=== PATIENT | female | born 1975 | race Caucasian/White ===

== ENCOUNTER 2023-08-03 12:57 | Emergency (ER) | payer OTHER, SELFPAY ==
[2023-08-03 13:12] VITALS: BP 200/100
[2023-08-03 13:53] LABS: % Basophils 0.9 % (0-2); % Immature Granulocytes 0.3 % (0-0.5); % Lymphocytes 27.6 % (20.5-51.1); % Monocytes 7.8 % (1.7-9.3); % Neutrophils 61.4 % (42.2-75.2); Absolute Basophils 0.1 10^3/uL (0-0.2); Absolute Eosinophils 0.2 10^3/uL (0-0.7); Absolute Lymphocytes 2.1 10^3/uL (1.2-3.4); Absolute Monocytes 0.6 10^3/uL (0.1-0.6); Absolute Neutrophils 4.6 10^3/uL (1.4-6.5); Hematocrit 43.6 % (37.0-47.0); Hemoglobin 14.9 g/dL (12.0-16.0); Mean Corp Hgb Conc. 34.2 g/dL (33.0-37.0); Mean Corpuscular Hgb 31.4 pg (27.0-31.0); Mean Platelet Volume 9.9 fL (7.4-10.4); Nucleated Red Blood Cells % 0 %; Platelet Count 330 10^3/uL (130-400); Red Blood Cell Count 4.74 10^6/uL (4.20-5.40); Red Cell Dist. Width 11.6 % (11.5-14.5); White Blood Cell Count 7.5 10^3/uL (4.8-10.8)
[2023-08-03 14:03] LABS: HCG, Serum Qualitative Screen Negative
[2023-08-03 14:09] LABS: ALT (SGPT) 21 U/L (0-35); AST (SGOT) 29 U/L (14-36); Albumin 5.1 g/dl (3.5-5.0); Alkaline Phosphatase 45 U/L (38-126); Blood Urea Nitrogen 21 mg/dl (7-17); Calcium 9.6 mg/dl (8.4-10.2); Carbon Dioxide 28 mmol/L (22-30); Chloride 102 mmol/L (98-107); Glucose 89 mg/dl (70-99); Potassium 4.1 mmol/L (3.5-5.1); Sodium 137 mmol/L (135-145); Total Bilirubin 1.1 mg/dl (0.2-1.3); Total Protein 7.9 g/dl (6.3-8.2); eGFR > 60.00
[2023-08-03 15:12] VITALS: BP 160/103
[2023-08-03 15:13] VITALS: BMI 24.9
[2023-08-03 15:22] LABS: Urine Albumin Negative (Neg - Trace); Urine Bilirubin Negative (Negative); Urine Character Clear (Clear); Urine Color Yellow; Urine Glucose Negative (Negative); Urine Ketone Trace (Negative); Urine Leukocyte Negative (Negative); Urine Nitrite Negative (Negative); Urine Occult Blood Negative (Negative); Urine Urobilinogen Negative (Neg - 1+)
--- NOTE | 2023-08-03 15:30 | ED.GENMED ---
History of Present Illness
General
Chief Complaint: Abdominal Symptoms
Source: patient
Time Seen by Provider: 08/03/23 15:04
Travel History
Have you had any contact with someone who has COVID-19?: No
Do you have any symptoms of coronavirus? Fever > 100 degrees, chills, cough, shortness of breath, sore throat, loss of taste or smell, muscle aches, or headache?: No
History of Present Illness
History of Present Illness:
47-year-old female with past medical history of diverticulitis, giant cell arteritis (gets once monthly infusion) presenting to the emergency department for evaluation of left-sided lower abdominal pain x 2 days accompanied with 1 day of nausea
(notes this is currently resolved) and some slightly decreased p.o. intake. Patient states that the location of the pain feels similar to previous diverticulitis but she was concerned about possible bowel obstruction or bowel perforation given the
infusion she is on for her giant cell arteritis stated that this was one of the potential side effects. She denies any fevers, rigors, vomiting, urinary symptoms or bowel changes. She did take some Motrin yesterday with minimal relief but did not
take anything yet today for that her symptoms. She has no other concerns at this time. Social history was noncontributory.
Past History
Past History
ED Past Medical History: CVA, Psychiatric and Other (Diverticulitis, giant cell arteritis)
ED Past Surgical History: Cholecystectomy, Gynecological and Other
Social History
Tobacco: Non-smoker
Alcohol: Occasional
Drug: None
Personal:
Living: with family
Employment: Employed ([employer])
Review of Systems
Review of Systems
All Other Systems: ROS reviewed and negative except as documented in HPI and ROS
Phy Exam
Physical Exam
Physical Exam:
GENERAL: Alert , in no apparent distress but does appear mildly uncomfortable
EYE: clear conjunctiva b/l
HEAD: NCAT
ENT: o/p clr, mmm.
CARDIAC: Regular rate and rhythm .
LUNGS: Clear breath sounds bilaterally, no acute respiratory distress, no wheezes/rales/rhonchi
ABDOMEN: Soft moderate tenderness within the left lower quadrant but without rebound or guarding, no r/g, no cvat
NEUROLOGICAL: Alert and oriented
SKIN: Warm and dry, skin intact.
MUSCULOSKELETAL: well perfused.
PSYCH: Normal and appropriate interaction.
Scores
Heart Failure Risk
Heart Failure Risk Score: Not Applicable
Heart Score for Chest Pain Patients
STEMI patient?: Not applicable
Withdrawal Assessment of Alcohol
Withdrawal Assessment Completed?: Not applicable
Course
Orders/Labs/Results
Orders:
Orders
08/03/23 13:19
Test Result ONCE
08/03/23 13:42
Complete Blood Count/With Diff Urgent
Comprehensive Metabolic Panel Urgent
HCG, Serum Qualitative Screen Urgent
08/03/23 14:32
CT Abd/Pel (IV only)-DH only Urgent
Comment:
Reason For Exam: left abd pain
08/03/23 15:16
Urinalysis Reflex To Culture Urgent
Date Specimen was Collected: 08/03/23
Time Specimen was Collected: 13:19
08/03/23 15:29
Ketorolac [Toradol] 30 mg IV NOW STA
Abnormal Lab Results
08/03/23 08/03/23
13:42 15:16
MCH 31.4 H pg
(27.0-31.0)
BUN 21 H mg/dl
(7-17)
Albumin 5.1 H g/dl
(3.5-5.0)
Urine Ketones Trace A
(Negative)
08/03/23 13:42
08/03/23 13:42
Vital Signs
Initial and Last Documented VS:
Initial Vital Signs
Temp Pulse Resp BP Pulse Ox
98.8 F 87 16 200/100 98
08/03/23 13:12 08/03/23 13:12 08/03/23 13:12 08/03/23 13:12 08/03/23 13:12
Last Documented Vital Signs
Temp Pulse Resp BP Pulse Ox
98.8 F 85 18 153/95 100
08/03/23 13:12 08/03/23 16:55 08/03/23 16:55 08/03/23 17:00 08/03/23 16:55
MDM/Problems Addressed
Differential Diagnosis Includes:
Diverticulitis, urinary tract infection, pyelonephritis, ovarian cyst, pancreatitis, medication side effects
MDM/Problems Addressed:
47-year-old female presenting emergency department for evaluation of 2 days left-sided lower abdominal pain. Has noted history for diverticulitis with microperforation in the past but without any surgical intervention needed. Pain is clearly
reproducible within the left lower and left mid abdomen. Labs have been initiated on arrival and patient does not have any leukocytosis and chemistry is otherwise unremarkable. Urinalysis is also unremarkable. CT of the abdomen and pelvis
ordered. Will treat pain with Toradol. Reassessment following.
*Radiology
Radiology exam reviewed: radiology read reviewed
*Pulse Oximetry
Patient hypoxic: no
*Critical Care Note
Total Time (30-74mins, 75-104mins- exclusive of procedures): Not Applicable
Data Reviewed
Review of Other/Old Records Reveals: Labs and Records
Source: patient and records
Patient Management
Escalation/DeEscalation of care consider admission/obs:
Patient CT scan shows acute uncomplicated sigmoid diverticulitis. Patient is afebrile, no leukocytosis and pain is currently well-controlled. She is agreeable to outpatient antibiotic management. She will follow-up with her primary care physician
for follow-up as well as for monitoring of her blood pressure which was elevated while here. Patient is aware of return precautions but otherwise stable for discharge home.
ED Attending Note
-
Portions of this chart may have been created with voice recognition software.� Occasional wrong word or��sound alike� substitutions may have occurred due to the inherent limitations of voice recognition software.
Discharge Plan
Departure
Patient Disposition: Home (Routine Discharge)
Date of Disposition: 08/03/23
Time of Disposition: 16:56
Patient with high blood pressure during this ER visit?: Yes
Discharge Problem:
Diverticulitis of sigmoid colon
Instructions: Diverticulitis (DC)
Prescriptions:
New
amoxicillin-pot clavulanate 875-125 mg tablet
1 tab PO BID 10 Days Qty: 20 0RF
No Action
prednisone
1 dose PO DAILY
Rx Instructions:
tapering
topiramate [Topamax] 15 mg Capsule, Sprinkle
15 mg PO DAILY
doxycycline hyclate
1 dose PO DAILY
polyethylene glycol 3350 [Miralax] 17 gram Powder In Packet
17 g PO PRN PRN (Reason: contipation)
polyethylene glycol 3350 [Miralax] 17 gram Powder In Packet
17 g PO DAILY
fluconazole 50 mg Tablet
50 mg PO DAILY
omeprazole 20 mg Capsule,Delayed Release(Dr/Ec)
20 mg PO DAILY
Referrals:
Cristobal Virgen MD [Family Provider] -
Interventions
Interventions:
*Risk Screen - Suicide Last Done: 08/03/23 15:13
*General Assessment Last Done: 08/03/23 15:13
*Neglect/Abuse Screening Last Done: 08/03/23 15:13
ED- Fall Risk Assessment Last Done: 08/03/23 16:23
*ED COVID-19 Vaccine History Last Done: 08/03/23 13:12
*Nursing Disposition Last Done: 08/03/23 17:26
HW-Ymshfn-Zicesprlwl Assessment Last Done: 08/03/23 15:13
Discharge Date and Time
Discharge Date/Time: 08/03/23 17:28
Print Language: PAKISTANI
[2023-08-03] MEDS: TORADOL 30 MG IV (15:34)
[2023-08-03 16:00] VITALS: BP 169/87
[2023-08-03 16:24] VITALS: BP 177/92
[2023-08-03 17:00] VITALS: BP 153/95
== END 2023-08-03 17:28 | disposition home or self-care (01) ==
LOC: EMR 12:57
PROVIDERS: Emergency Medicine; EMERGENCY PHYSICIAN Emergency Medicine; FAMILY PHYSICIAN Family Medicine
DX: K57.32 Diverticulitis of large intestine without perforation or abscess without bleeding (principal); R03.0 Elevated blood-pressure reading, without diagnosis of hypertension
CPT/HCPCS: 99285; 96374; 74177; 80053; 81003; 84703; 85025; Q9967

== ENCOUNTER → 2024-04-15 11:21 | Outpatient (REF) | payer OTHER, SELFPAY | LOC: WDC 11:21 | PROVIDERS: ATTENDING PHYSICIAN Obstetrics & Gynecology Gynecology; FAMILY PHYSICIAN Family Medicine | DX: Z12.31 Encounter for screening mammogram for malignant neoplasm of breast (principal) | CPT/HCPCS: 77063; 77067 ==

== ENCOUNTER → 2024-04-27 08:17 | Outpatient (REF) | payer OTHER, SELFPAY | LOC: WDC 08:17 | PROVIDERS: ATTENDING PHYSICIAN Obstetrics & Gynecology Gynecology; FAMILY PHYSICIAN Family Medicine | DX: R92.8 Other abnormal and inconclusive findings on diagnostic imaging of breast (principal) | CPT/HCPCS: 76642 ==